=== PATIENT | female | born 1960 | race African-American/Black ===

== ENCOUNTER 2017-05-26 05:08 | Inpatient (IN) | payer BC ==
[2017-05-13 13:29] LABS: URINE BILIRUBIN NEGATIVE (Negative); URINE BLOOD NEGATIVE (Negative); URINE COLOR YELLOW; URINE GLUCOSE-RANDOM* NEGATIVE (Negative); URINE KETONES NEGATIVE (Negative); URINE LEUKOCYTES-REFLEX NEGATIVE (Negative); URINE PROTEIN (DIPSTICK) NEGATIVE (Negative); URINE UROBILINOGEN 0.2 E.U./dl (0.2-1.0)
[2017-05-13 13:35] LABS: HEMATOCRIT 38.9 % (37.0-47.0); MCH 31.6 pg (26.0-34.0); MCHC 33.4 g/dL (28.0-37.0); MCV 94.4 fL (80.0-100.0); RBC 4.12 mil/uL (4.20-5.00); WBC 6.2 thou/uL (4.0-11.0)
[2017-05-13 13:48] LABS: ALBUMIN 3.9 g/dL (3.4-5.0); CALCIUM 8.9 mg/dL (8.5-10.1); CREATININE 0.7 mg/dL (0.6-1.0); POTASSIUM 4.3 mmol/L (3.5-5.1)
[2017-05-13 13:50] LABS: PROTIME 9.5 Seconds (9.3-11.4)
[~2017-05-26] VITALS: Ht 160 cm; Wt 80.7 kg
[2017-05-26] VITALS (12 sets, daily range): BP systolic 118–145; BP diastolic 70–113
--- NOTE | ~2017-05-26 | O ---
[facility] [place] [address] OPERATIVE REPORT Name: CATALINA YUN Room #: 410-P [facility] IN M.R.#: [id number] Admission: 05/26/17 Attend Phys: Aristides Desir MD Discharge: Date of : 56 Report #: [id number] THIS REPORT FOR: //name// CC: Aristides Spencer DATE OF SERVICE: 05/26/2017 PREOPERATIVE DIAGNOSIS: Left knee rheumatoid arthritis. POSTOPERATIVE DIAGNOSIS: Left knee rheumatoid arthritis. PROCEDURE: Left total knee arthroplasty. SURGEON: Aristides Desir MD. BREAST SURGEON: Temi Archibald PA-C. ANESTHESIA: LMA with an adductor canal block. IMPLANTS: [employer]una [employer] Nephew size 5 Legion Oxinium posterior stabilized femur, size 4 tibia, size 9 polyethylene and size 32 patella. TOURNIQUET TIME: 57 minutes. ESTIMATED BLOOD LOSS: 50 mL. COMPLICATIONS: None. SPECIMENS: None. CONDITION UPON LEAVING THE OPERATING ROOM: Stable. INDICATIONS FOR PROCEDURE: The patient is a 56-year-old female with severe left knee rheumatoid arthritis. She had failed conservative treatment for this and after discussion with her, she elected for left total knee arthroplasty. DESCRIPTION OF PROCEDURE: Risks, benefits, alternatives and complications were discussed in detail with the patient, including but not limited to risk of anesthesia; risk of damage to nerves, arteries, blood vessels; risk for infection or bleeding; risk for continued knee pain and need for reoperation. Informed consent was obtained from the patient. Left knee was appropriately marked in the preoperative holding area. Adductor canal block was placed by anesthesia. IV clindamycin was given for preoperative antibiotics. She was brought to the operating room and placed in supine position on operating room table. Spinal anesthesia was attempted, but was unsuccessful and so this was [facility] [address] [place] [address] OPERATIVE REPORT Name: CATALINA YUN Blade Room #: 410-P [facility] M.R.#: [id number] Admission: 05/26/17 Attend Phys: Aristides Desir MD Discharge: Date of : 56 Report #: [id number] converted to general endotracheal anesthesia. Tourniquet was placed on the left thigh. Left lower extremity was prepped and draped in normal sterile fashion. Timeout was performed properly identifying the patient and procedure as well as the instrumentation and implants. All in the operating room were in agreement. Left lower extremity was exsanguinated and tourniquet was inflated. Tourniquet time was 57 minutes. Standard midline approach to the knee was made with 10 blade through the skin. Dissection was taken down the fascia and deep flaps were developed medially and laterally. A fresh 10 blade was used to make a medial parapatellar arthrotomy and the knee was inspected. There was extensive tricompartmental arthritic change of the knee as well as synovial hypertrophy. Anterior horns of the meniscus were removed sharply. Patella was everted, knee was flexed. ACL and PCL were removed sharply. Drill was used to gain access to the canal of the femur and distal femoral cutting block was pinned in place. Distal femoral cut was made. Femur was sized and found to be a size 5. The size 5 four-in-one cutting block was placed. The anterior, posterior and chamfer cuts were made. After this, the knee was hyperflexed. The remainder of the menisci were removed with Bovie cautery. Drill was used to gain access to the canal of the tibia and tibial resection was based off the lateral plateau. Tibial resection was made. Posterior osteophytes were removed from the femur. After this, flexion and extension gaps were checked and found to be tight in extension both medially and laterally with good balance and flexion. It was decided to take 2 mm of additional distal femur and the chamfer cuts were remade. This balanced the knee well in flexion and extension. Tibia was sized and found to be a size 4. A size 4 tibial trial was placed, size 5 femoral trial was placed and the box cut was made. was placed and the size 9 polyethylene trial was placed. Knee was taken through range of motion, found to be stable and found to have good balance in flexion and extension both medially and laterally. After this, 9 mm was taken off the posterior surface of the patella and a size 32 patellar button trial was placed. Knee was taken through range of motion and found to be stable and found to have good balance in flexion and extension both medially and laterally. Trial components were removed. Bony ends were thoroughly irrigated with normal saline. A final size 4 tibia, size 5 Legion Oxinium posterior stabilized femur and a size 32 patella were cemented in place using standard cementation techniques. After the cement cured, the tourniquet was deflated. Hemostasis was obtained with Bovie cautery. A final size 9 polyethylene was placed. A gram of vancomycin was placed deep in the knee joint. Fascia was closed with 0 Vicryl, skin was closed with 2-0 Vicryl and 3-0 Monocryl. Dermabond and Acticoat and JM dressing were applied. The patient tolerated this procedure well and went to the recovery room under the care of anesthesia postoperatively. <ELECTRONICALLY SIGNED> By: Aristides Desir MD 05/26/17 1401 [id number] Aristides Desir MD /[email or web address]
[~2017-05-26 05:08] MED LIST: ACCUNEB0.63 MG/3 INH; ACTEMRA200 MG/10 IV; ACTEMRA80 MG/4 ML; ADVAIR INH; ALPRAZOLAM; AMBIEN 10 MG TA10 MG PO; AMITRIPTYLINE H10 M1 PO; ARAVA10 MG; AZITHROMYCIN 2250 MG PO; CELEBREX; CELEBREX 200 M200 M1 PO; CELEBREX 200 M200 MG PO; CIPROFLOXACIN500 M1 PO; CIPROFLOXACIN500 M3 PO; CYMBALTA; DARVOCET-N 1001 EACH PO; DULERA 200 MCG/13 GM INH; DUONEB 2.5-0.5 M3 ML INH; ENALAPRIL MALEA20 MG; ENALAPRIL MALEA20 MG PO; FEXMID7.5 MG; FLEXERIL PO; FLUOCINONI0.05 %/30 TOP; FUROSEMIDE 20 M20 M1; HYDROCHLOROTH12.5 MG PO; HYDROCHLOROTHIA25 M1 PO; HYDROCODON-ACE1 EAC5 PO; HYDROXYCHLOROQ200 M1 PO; HYDROXYZINE; HYDROXYZINE HCL25 M1 PO; HYDROXYZINE HCL25 M2 PO; HYDROXYZINE PA100 MG PO; ISOMETHEPT-DIC1 EACH PO; KEFLEX500 M1 PO; LASIX 20 MG TAB20 MG; LASIX 20 MG TAB20 MG PO; MEDROL DOSPAK21 TA1; NORCO 5-325 TA1 EACH PO; OXYCONTIN10 M1 PO; PEPCID40 MG PO; PERCOCET 10-321 EACH PO; PREDNISONE 10 M10 M1 PO; PREDNISONE 20 M20 MG PO; PRILOSEC40 MG PO; PROAIR HFA8.5 GM INH; PROTONIX40 M1 PO; PYRIDIUM200 M1 PO; REGLAN 10 MG TA10 M1 PO; REQUIP0.5 MG PO; SENOKOT-S1 TA1 PO; SYMBICORT160 MCG/4. INH; TIZANIDINE HCL2 M1 PO; TOPAMAX; TOPAMAX 100 MG100 MG PO; TOPAMAX50 MG PO; TOPIRAMATE50 MG PO; TRAMADOL 50 MG50 MG PO; TRAZODONE HCL50 MG PO; ULTRAM 50MG TAB50 MG; ULTRAM ER100 MG; VASOTEC20 MG PO; VENTOLIN HFA 1818 GM INH; VITAMIN D 5050000 I1 PO; VITAMIN D2400 UNIT; VITAMIN D2400 UNIT PO; VITAMIN D250000 UNIT PO; XANAX 0.25 MG0.25 MG PO; XANAX XR2 MG PO; XARELTO10 MG PO; ZANTAC 150MG T150 M1 PO; ZPAK; ZYRTEC 10 MG TA10 M1 PO; ZYRTEC10 M2 PO; ZYRTEC10 MG PO; orencia
[2017-05-27] VITALS: BP 129/82
[2017-05-27 04:17] VITALS: BP 137/99
[2017-05-27 06:40] LABS: HEMATOCRIT 34.8 % (37.0-47.0); HEMOGLOBIN 11.6 gm/dL (12.0-15.0); MCH 31.7 pg (26.0-34.0); MCHC 33.4 g/dL (28.0-37.0); MCV 95.1 fL (80.0-100.0); RBC 3.66 mil/uL (4.20-5.00); RDW 13.3 % (10.5-14.5); WBC 8.9 thou/uL (4.0-11.0)
[2017-05-27 08:55] VITALS: BP 116/73
[2017-05-27 11:15] VITALS: BP 116/73
[2017-05-27 20:00] VITALS: BP 132/85
[2017-05-27 21:03] VITALS: BP 132/85
[2017-05-28 03:12] VITALS: BP 130/83
[2017-05-28 05:50] LABS: HEMATOCRIT 33.1 % (37.0-47.0); HEMOGLOBIN 10.9 gm/dL (12.0-15.0); MCH 31.6 pg (26.0-34.0); MCHC 33.1 g/dL (28.0-37.0); MCV 95.6 fL (80.0-100.0); RBC 3.46 mil/uL (4.20-5.00); RDW 13.7 % (10.5-14.5); WBC 4.9 thou/uL (4.0-11.0)
[2017-05-28 08:25] VITALS: BP 102/72
[2017-05-28 20:32] VITALS: BP 116/72
[2017-05-29 04:09] VITALS: BP 107/61
[2017-05-29 05:46] LABS: HEMATOCRIT 27.6 % (37.0-47.0); HEMOGLOBIN 9.3 gm/dL (12.0-15.0); MCH 31.8 pg (26.0-34.0); MCHC 33.8 g/dL (28.0-37.0); MCV 94.2 fL (80.0-100.0); RBC 2.93 mil/uL (4.20-5.00); RDW 13.3 % (10.5-14.5); WBC 4.2 thou/uL (4.0-11.0)
[2017-05-29 08:00] VITALS: BP 106/68
[2017-05-29 10:36] VITALS: BP 116/73
[2017-05-29] MEDS ORDERED: XARELTO10 MG PO (11:18)
[2017-05-29] MEDS ORDERED: OXYCONTIN10 M1 PO (11:18)
[2017-05-29] MEDS ORDERED: PERCOCET 10-321 EACH PO (11:19)
== END 2017-05-29 16:15 | disposition home or self-care (01) | DRG 470 ==
LOC: PRE → 4N 05:08 → TBA 05:08 → PRE 07:11 → 4N 10:50 → PRE 12:34 → 4N 05-29 16:15
PROVIDERS: Orthopaedic Surgery
PROC: 0SRD0J9 Replacement of Left Knee Joint with Synthetic Substitute, Cemented, Open Approach (ICD-10-PCS; principal; 2017-05-26)
DX: M06.862 Other specified rheumatoid arthritis, left knee (principal); Z79.899 Other long term (current) drug therapy; Z88.8 Allergy status to other drugs, medicaments and biological substances; Z90.49 Acquired absence of other specified parts of digestive tract; Z88.1 Allergy status to other antibiotic agents; Z88.6 Allergy status to analgesic agent; Z91.040 Latex allergy status; Z88.0 Allergy status to penicillin; Z91.041 Radiographic dye allergy status
CPT/HCPCS: 10790; 50010; 50101; 50415; 50954; 51130; 51225; 51771; 53000; 53078; 53365; 54118; 56527; 56528; 57095; 62110; 62900; 70005

== ENCOUNTER → 2017-06-04 | Outpatient (CLI) | payer BC | LOC: ULTRA 09:25 | DX: M79.605 Pain in left leg (principal); M79.89 Other specified soft tissue disorders; R60.0 Localized edema ==

== ENCOUNTER 2017-11-24 13:36 | Emergency (ER) | payer OTHER ==
[~2017-11-24] VITALS: Ht 160 cm; Wt 79.4 kg
--- NOTE | ~2017-11-24 | EKG ---
[address] [place] [address] ELECTROCARDIOGRAM REPORT Name: CATALINA YUN Room #: [facility]#: [id number] Admission: 11/24/17 Attend Phys: Discharge: Date of : 56 Report #: [id number] THIS REPORT FOR: //name// [facility] ED Test Date: 2017-11-24 Test Time: 13:51:15 Pat Name: CATALINA YUN Department: Room: Gender: F Teaching Fellow: GAIL : 1960 Requested By: Nate Johnson Order Number: [id number] MD: Arden Waldron Measurements Intervals [place] Rate: 76 P: 49 FL: 154 QRS: 21 QRSD: 76 T: 30 QT: 381 QTc: 429 Interpretive Statements Sinus rhythm Normal tracing Compared to ECG 04/30/2017 21:35:58 No significant changes Electronically Signed On 11-24-2017 16:34:32 [employer]ACLE PROGRAM[employer] by Arden Waldron [email or web address] <ELECTRONICALLY SIGNED> By: Arden Waldron MD, [facility] 11/24/17 1634 1351 1351 Arden Waldron MD, FACC /EPI
[2017-11-24 14:55] LABS: ABSOLUTE NEUTROPHILS 1.7 thou/uL (1.4-8.2); BASOPHILS 1.3 % (0.0-2.0); EOSINOPHILS 5.4 % (0.0-3.0); HEMATOCRIT 38.9 % (37.0-47.0); HEMOGLOBIN 12.8 gm/dL (12.0-15.0); LYMPHOCYTES 43.3 % (24.0-44.0); MCHC 32.9 g/dL (28.0-37.0); MCV 94.3 fL (80.0-100.0); MONOCYTES 5.4 % (1.0-8.0); PLATELET COUNT 208 thou/uL (150-400); POLYS 44.6 % (36.0-66.0); RBC 4.13 mil/uL (4.20-5.00); WBC 3.9 thou/uL (4.0-11.0)
[2017-11-24 16:04] LABS: ANION GAP 8 mmol/L (7-16); BUN 13 mg/dL (7-18); CHLORIDE 109 mmol/L (98-107); CO2 24 mmol/L (21-32); CREATININE 0.8 mg/dL (0.6-1.0); GLUCOSE 78 mg/dL (74-106); SODIUM 141 mmol/L (136-145)
[2017-11-24 16:12] LABS: ALBUMIN 3.8 g/dL (3.4-5.0); LIPASE 156 U/L (73-393); SGOT 20 U/L (15-37); SGPT 39 U/L (30-65); TOTAL BILIRUBIN 0.3 mg/dL (<0.1-1.0); TOTAL PROTEIN 6.7 g/dL (6.4-8.2); TROPONIN-I < 0.04 ng/mL (<0.06)
[2017-11-24 17:12] VITALS: BP 129/80
== END 2017-11-24 17:13 | disposition home or self-care (01) ==
LOC: ER 13:36
PROVIDERS: Emergency Medicine
DX: R07.89 Other chest pain (principal); J45.909 Unspecified asthma, uncomplicated; M19.90 Unspecified osteoarthritis, unspecified site; M79.7 Fibromyalgia; G43.909 Migraine, unspecified, not intractable, without status migrainosus; G47.30 Sleep apnea, unspecified; K21.9 Gastro-esophageal reflux disease without esophagitis; Z90.49 Acquired absence of other specified parts of digestive tract; Z88.0 Allergy status to penicillin; Z88.5 Allergy status to narcotic agent; Z88.8 Allergy status to other drugs, medicaments and biological substances

== ENCOUNTER → 2020-05-01 | Outpatient (CLI) | payer OTHER | LOC: MRI 04-30 11:02 → RAD 16:22 | PROVIDERS: ATTEND Internal Medicine Rheumatology | DX: M19.011 Primary osteoarthritis, right shoulder (principal) ==

== ENCOUNTER 2020-06-12 16:39 | Emergency (ER) | payer OTHER ==
[~2020-06-12] VITALS: Ht 160 cm; Wt 78.0 kg
[2020-06-12 17:56] LABS: URINE BILIRUBIN NEGATIVE (Negative); URINE BLOOD NEGATIVE (Negative); URINE CLARITY CLEAR; URINE COLOR YELLOW; URINE GLUCOSE-RANDOM* NEGATIVE (Negative); URINE KETONES NEGATIVE (Negative); URINE LEUKOCYTES-REFLEX NEGATIVE (Negative); URINE NITRITE-REFLEX NEGATIVE (Negative); URINE PROTEIN (DIPSTICK) NEGATIVE (Negative); URINE UROBILINOGEN 0.2 E.U./dl (0.2-1.0)
[2020-06-12 18:32] LABS: ABSOLUTE NEUTROPHILS 2.9 thou/uL (1.4-8.2); BASOPHILS 1.1 % (0.0-2.0); EOSINOPHILS 3.6 % (0.0-3.0); HEMATOCRIT 38.2 % (37.0-47.0); HEMOGLOBIN 13.1 gm/dL (12.0-15.0); LYMPHOCYTES 32.1 % (24.0-44.0); MCH 32.1 pg (26.0-34.0); MCHC 34.3 g/dL (28.0-37.0); MCV 93.6 fL (80.0-100.0); MONOCYTES 7.4 % (1.0-8.0); PLATELET COUNT 223 thou/uL (150-400); POLYS 55.8 % (36.0-66.0); RBC 4.08 mil/uL (4.20-5.00); RDW 12.9 % (10.5-14.5); WBC 5.2 thou/uL (4.0-11.0)
[2020-06-12 18:40] LABS: ANION GAP 10 mmol/L (7-16); BUN 10 mg/dL (7-18); CALCIUM 8.8 mg/dL (8.5-10.1); CHLORIDE 107 mmol/L (98-107); CO2 25 mmol/L (21-32); CREATININE 0.8 mg/dL (0.6-1.0); GLUCOSE 103 mg/dL (74-106); POTASSIUM 3.5 mmol/L (3.5-5.1); SODIUM 142 mmol/L (136-145)
[2020-06-12 18:49] LABS: ALBUMIN 3.8 g/dL (3.4-5.0); LIPASE 128 U/L (73-393); SGOT 17 U/L (15-37); SGPT 74 U/L (30-65); TOTAL BILIRUBIN 0.3 mg/dL (0.2-1.0); TOTAL PROTEIN 6.9 g/dL (6.4-8.2); TROPONIN-I <0.06 ng/mL (<0.06)
[2020-06-12 20:31] VITALS: BP 139/93
--- NOTE | 2020-06-13 07:50 | EKG ---
[facility] [place] [address] ELECTROCARDIOGRAM REPORT Name: CATALINA YUN Room #: [facility]#: [id number] Admission: 06/12/20 Attend Phys: Discharge: 06/12/20 Date of : 56 Report #: [id number] THIS REPORT FOR: cc: Iain Spencer Steven F. DO Lundgren, Craig H. MD [facility] ~ THIS REPORT FOR: //name// [facility] ED Test Date: 2020-06-12 Test Time: 17:35:30 Pat Name: CATALINA YUN Department: Room: Gender: F Water Engineer: esheets : 1960 Requested By: Steven Hernandez Order Number: [id number] MD: Arden Waldron Measurements Intervals [place] Rate: 82 P: 37 NV: 148 QRS: 7 QRSD: 80 T: 26 QT: 380 QTc: 444 Interpretive Statements Sinus rhythm Normal tracing Compared to ECG 11/24/2017 13:51:15 No significant changes Electronically Signed On 06-13-2020 7:50:31 CDT by Arden Waldron [email or web address] <ELECTRONICALLY SIGNED> By: Arden Waldron MD, [facility] 06/13/20 0750 1735 1735 Arden Waldron MD, [facility] /EPI
== END 2020-06-12 20:32 | disposition still patient (30) ==
LOC: ER 16:39
PROVIDERS: Emergency Medicine
DX: K59.00 Constipation, unspecified (principal); R11.2 Nausea with vomiting, unspecified; J45.909 Unspecified asthma, uncomplicated; M06.9 Rheumatoid arthritis, unspecified; M79.7 Fibromyalgia; K21.9 Gastro-esophageal reflux disease without esophagitis; F32.9 Major depressive disorder, single episode, unspecified; F41.9 Anxiety disorder, unspecified; Z90.49 Acquired absence of other specified parts of digestive tract; Z90.711 Acquired absence of uterus with remaining cervical stump; Z98.890 Other specified postprocedural states; Z96.651 Presence of right artificial knee joint; Z79.899 Other long term (current) drug therapy; Z88.8 Allergy status to other drugs, medicaments and biological substances; Z88.5 Allergy status to narcotic agent; Z91.040 Latex allergy status; Z88.0 Allergy status to penicillin; Z88.6 Allergy status to analgesic agent; Z91.041 Radiographic dye allergy status

== ENCOUNTER → 2020-06-26 | Outpatient (CLI) | payer OTHER | LOC: MRI 11:34 | PROVIDERS: ATTEND Internal Medicine Rheumatology | DX: S46.011A Strain of muscle(s) and tendon(s) of the rotator cuff of right shoulder, initial encounter (principal); S46.811A Strain of other muscles, fascia and tendons at shoulder and upper arm level, right arm, initial encounter; M25.511 Pain in right shoulder; M77.8 Other enthesopathies, not elsewhere classified; X58.XXXA Exposure to other specified factors, initial encounter; Y93.89 Activity, other specified; Y92.89 Other specified places as the place of occurrence of the external cause; Y99.8 Other external cause status ==